=== PATIENT | male | born 1940 | race Caucasian/White ===

== ENCOUNTER 2021-08-22 08:53 | Emergency (ER) | payer OTHER ==
--- OUTSIDE RECORDS SUMMARY | 2021-08-22 08:56 | XMS REPORT | Continuity of Care Document ---
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 4-07 it y of ia ia 00:00: [place] 00 [facility] Branch Vitamin D Vitamin D Disease Active Uni vers deficiency deficiency 4-07 it y of 00:00: [place] 00 [facility] Branch Fatigue Fatigue Disease Active Univers associated associated 4-07 it y of with with 00:00: [place] anemia anemia 00 Medical Branch Colonic Colonic Disease Active 2019- Univers thickening thickening 8-21 it y of 00:00: [place] 00 Medical Branch Esophageal Esophageal Disease Active 2020-0 U nivers dyskinesia dyskinesia 8-07 it y of 00:00: [place] 00 Medical [facility] Paroxysmal Paroxysmal Disease Active 2020-0 U nivers atrial atrial 1-14 ity of fibrillati fibrillati [place] 00 [place] Malignant Malignant Disease Active 2018-06 Uni vers neoplasm neoplasm 0-23 ity of of urinary of urinary [place] bladder, bladder, 00 Medica l unspecifie unspecifie Br anch d site d site 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 0-23 ity of hyperplasi hyperplasi [place] a with a with 00 Medical urinary urinary Branch obstructio obstructio n n Encounter Encounter Disease Active 2018-06 Uni vers for for 0-23 [place] of screening screening 00:[place] for for 00 Medical malignant malignant Bran ch neoplasm neoplasm of lung of lung Need for Need for Disease Active 2018-06 Unive rs 23-polyval 23-polyval 0-23 it y of ent ent 00:00: [place] pneumococc pneumococc 00 Me dical al al Branch polysaccha polysaccha ride ride vaccine vaccine Chronic Chronic Disease Active Univers obstructiv obstructiv 8-08 it y of e e 00:00: [place] pulmonary pulmonary 00 Medi roselia disease, disease, Branch unspecifie unspecifie d COPD d COPD type type Asbestosis Asbestosis Disease Active 2017-06 U nivers 0-08 ity of 00:00: [place] 00 Medical Branch 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 [facility] rs spondylosi spondylosi 0-05 it y of s without s without 00:[place] myelopathy myelopathy 00 Id dical Branch Neck pain Neck pain Disease Active Uni vers of over 3 of over 3 8-29 ity of months months 00:00: [place] duration duration 00 Medica l Branch Essential Essential Disease Active Uni vers hypertensi hypertensi 5-23 it y of on on 00:00: [place] 00 Medical Branch Type 2 Type 2 Disease Active Univers diabetes diabetes 2-08 ity of mellitus mellitus 00:00: [place] without without 00 Medical complicati complicati Br anch on, on, without without long-term long-term current current use of use of insulin insulin Gastroesop Gastroesop Disease Active U nivers hageal hageal 2-08 ity of reflux reflux 00:00: [place] disease disease 00 Medical without without Branch esophagiti esophagiti s s Supraventr Supraventr Disease Active 2013-06 U nivers icular icular 1-12 ity of tachycardi tachycardi [place] a, a, 00 Medical paroxysmal paroxysmal Br anch Status Status Disease Active 2013-06 Univers post post 1-12 ity of ablation ablation 00:00: [place] of of 00 Medical accessory accessory Bran ch bypass bypass tract tract Paroxysmal Paroxysmal Disease Active 2013-06 U nivers supraventr supraventr 0-30 it y of icular icular 00:00: [place] tachycardi tachycardi 00 Me dical a a Branch Personal Personal Disease Active Unive rs history of history of 10-01 it y of malignant malignant 00:[place] neoplasm neoplasm 00 Medica l of bladder of bladder Br anch Allergies, Adverse Reactions, Alerts Allergy Allergy Status Severity Reaction(s) Onset Inactive Treating Comm ents Source Name Type Date Date Clinician CORTICOS Drug Active Other-Cmnt Univ ers TEROIDS Class -29 ity of (GLUCOCO 00:00: [place] RTICOIDS 00 Medical ) Branch Corticos Propensi Active Other - See "makes m e Univers teroids ty to comments 10-27 mean" + ity of (Glucoco adverse 00:00: aggressiv [place] rticoids reaction 00 eness Medica l ) s Branch Simvasta Propensi Active Other - See + muscle Univers tin ty to comments 10-01 cramps ity of adverse 00:00: [place] reaction 00 Medical s to Branch drug Sulfa Propensi Active Other - See + Uni vers (Sulfona ty to comments 10-01 disorient ity of mide adverse 00:00: ation "I [place] Antibiot reaction 00 lost 3 Medica l ics) s to days." Branch drug MORPHINE DRUG Active Other-Cmnt Univ ers (BULK) 10-01 ity of 00:00: [place] 00 Medical Branch SIMVASTA DRUG Active Other-Cmnt Univ ers TIN INGREDI 10-01 ity of 00:00: [place] 00 Medical Branch SULFA Drug Active Other-Cmnt Univer s (SULFONA Class - ity of MIDE 00:00: [place] ANTIBIOT 00 Medical ICS) Branch Morphine Propensi Active Other - See " become Univers (Bulk) ty to comments 10-01 mean." + ity of adverse 00:00: aggressiv [place] reaction 00 eness Medical s to Branch drug Social History Social Habit Start Date Stop Date Quantity Comments Source Exposure to Not sure University SARS-CoV-2 (event) [facility] Alcohol intake 2021-08-16 2021-08-16 .14 /d University of 00:00:00 00:00:00 [facility] Tobacco Comment 2014-04-12 2014-04-12 11 months Universit y of 00:00:00 00:00:00 [facility] Cigarettes smoked 2013-06-10 2013-06-10 Univers ity of current (pack per 00:00:00 00:00:00 [place] ) - Reported Branch Cigarette 2013-06-10 2013-06-10 University of pack-years 00:00:00 00:00:00 [facility] Tobacco use and 2013-06-10 2013-06-10 Former user Universi ty of exposure 00:00:00 00:00:00 [facility] History of tobacco 2013-06-01 Smoker Univer sity of use 00:00:00 [facility] Sex Ass[birth year] At [birth year] Universit y of 00:00:00 00:00:00 [facility] Smoking Status Start Date Stop Date Source Former smoker 2013-06-10 00:00:00 2013-06-10 00:00:00 Universi ty of [facility] Medications Ordered Filled Start Stop Current Ordering Indication Dosage Frequency Signature Comments Components Source Medication Medication Date Date Medication? Clinician (SIG) Name Name aspirin 81 Yes 81mg Take 81 mg U nivers mg tablet 3-18 by mouth ity of 09:57: daily. [address] umeclidiniu 2020-06 Yes [id number] 1{puff} Inhale 1 Univers m (INCRUSE 2-23 Puff ity of ELLIPTA) 00:00: daily. [place] 62.5 00 Medical mcg/actuati Branch on DsDv azelastine 2020-06 Yes [id number] 1{spray Use 1 Univers 137 mcg 2-23 } [place] in ity of (0.1 %) 00:00: each [place] nasal spray 00 nostril 2 Med ical (two) Branch times daily. albuterol 2020-06 Yes [id number] 2{puff} Inhale 2 Univers 90 1-18 Puffs ity of mcg/actuati 00:00: every 6 Kiran as on inhaler 00 (six) Medical hours as Branch needed for Wheezing or Shortness of Breath. tamsulosin Yes [id number] .4mg Take 1 Univers 0.4 mg 24 6-02 capsule by ity of hr capsule 00:00: mouth [place] 00 daily. Medical Branch omeprazole Yes [id number] 40mg Take 1 Univers 40 mg 6-02 capsule by ity of capsule 00:00: mouth 00 daily. Medical Branch metoprolol Yes [id number] 50mg Take 1 U nivers tartrate 50 6-02 tablet by ity of mg tablet 00:00: mouth 2 [place] 00 (two) Medical times [place] daily. metformin Yes [id number] 500mg Take 1 Univers ER 500 mg 6-02 tablet by ity o f 24 hr 00:00: mouth 2 [place] tablet 00 (two) Medical times [place] daily with meals. amLODIPine Yes [id number] 2.5mg Take 1 Univers 2.5 mg 6-02 tablet by ity of tablet 00:00: mouth 00 daily. Medical Branch GLIPIZIDE Yes [id number] TAKE 1 U nivers 10 mg 5-11 TABLET BY ity of tablet 00:00: MOUTH 00 TWICE A Medical DAY BEFORE [place] BREAKFAST AND DINNER Nebulizer & 2019-0 Yes [id number] Use as Univers Compressor 3-26 directed ity o f For Neb 00:00: [place] [facility] blood sugar Yes Test 1 to U nivers diagnostic 2-19 2 times ity of strip 00:00: daily [facility] Immunizations Ordered Filled Immunization Date Status Comments [facility] e Immunization Name Name SARS-COV-2 COVID-19 2021-03-07 Completed Unive rsity of PFIZER VACCINE 00:00:00 [place] [facility] SARS-COV-2 COVID-19 2020-07-26 Completed Unive rsity of PFIZER VACCINE 00:00:00 [place] [facility] SARS-COV-2 COVID-19 2020-06-26 Completed Unive rsity of PFIZER VACCINE 00:00:00 [place] [facility] Influenza High Dose 2020-03-08 Completed Unive rsity of Quad 00:00:00 [facility] Pneumococcal 13 2019-03-21 Completed Universit y of Conjugate, PCV13 00:00:00 [facility] (Prevnar 13) [place] Influenza High Dose 2019-02-24 Completed Unive rsity of 00:00:00 [facility] Influenza High Dose 2018-03-08 Completed Unive rsity of 00:00:00 [facility] Influenza High Dose 2016-04-09 Completed Unive rsity of 00:00:00 [facility] Vital Signs Vital Name Observation Time Observation Value Comments Source Systolic blood 2021-08-16 15:13:00 150 mm[Hg] Univer sity of pressure [facility] Diastolic blood 2021-08-16 15:13:00 88 mm[Hg] Unive rsity of pressure [facility] Heart rate 2021-08-16 15:13:00 69 /min Universi ty of [facility] Respiratory rate 2021-08-16 15:09:00 22 /min Univ ersity of [facility] Body height 2021-08-16 15:09:00 188 cm Universi ty [facility] Body weight 2021-08-16 15:09:00 92.307 kg [facility] BMI 2021-08-16 15:09:00 26.13 kg/m2 [facility] Oxygen saturation in 2021-08-16 15:09:00 93 /min [facility] Arterial blood by [facility] Pulse oximetry Branch Procedures This patient has no known procedures. Encounters Start End Encounter Admission Attending Care Care Encounter Source Date/Time Date/Time Type Type Clinicians Facility Department ID 2021-10-18 2021-10-18 Outpatient R MIRANDA MAI [facility] [id number] Univers 13:00:00 13:00:00 MIRANDA MAI [id number] i ty of [facility] 2021-08-16 2021-08-16 Office Sergei MTDARY [id number] Univers 10:00:00 10:30:00 Visit Miranda CARPIO [id number] i ty [facility] [id number] Oscar gold PROFESSIO [phone] Id dical NAL 085 Branch BUILDING Results This patient has no known results.
[2021-08-22 09:29] LABS: Absolute Lymphocytes (CBC) 1.3 K/uL (0.7-4.9); Hematocrit 42.3 % (39.6-49.0); Lymphocytes % 18.9 % (15.3-44.8); MPV 9.4 fL (7.6-11.3); RBC Red Blood Cell Count 4.58 M/uL (4.33-5.43)
[2021-08-22 09:30] LABS: Protime INR 1.2
--- NOTE | 2021-08-22 09:37 | RAD REPORT ---
EXAM DESCRIPTION: CT - Head Brain Wo Cont - 08/22/2021 9:27 am CLINICAL HISTORY: general weakness COMPARISON: No comparisons TECHNIQUE: Axial 5 mm thick images of the head were obtained without IV contrast. All CT scans are performed using dose optimization technique as appropriate and may include automated exposure control or mA/KV adjustment according to patient size. FINDINGS: No intracranial hemorrhage, mass, edema or shift of mid-line structures. No acute infarcti on of the cortical level. No cortical edema or sulcal effacement. Atrophy changes are mild for age wi th ventricles in proportion. No abnormal extra-axial fluid collections. Chronic ischemic changes are minimal. Mastoid air cells and visualized portions of the paranasal sinuses are clear. No acute bony findings. IMPRESSION: Negative non-contrast CT head examination for acute finding.
[2021-08-22 09:44] LABS: Bilirubin Direct 0.1 mg/dL (0-0.2); Bilirubin Total 0.5 mg/dL (0.2-1.0); Potassium 4.4 mmol/L (3.5-5.1); Protein, Total 7.9 g/dL (6.4-8.2); Troponin High Sensitivity 9.4 pg/mL (<58.9)
--- NOTE | 2021-08-22 10:13 | RAD REPORT ---
EXAM DESCRIPTION: RAD - Chest Single View - 08/22/2021 9:52 am CLINICAL HISTORY: general weakness COMPARISON: 02/16/2012 Two view chest TECHNIQUE: AP portable chest image was obtained 08/22/2021 9:52 am . FINDINGS: Fibrotic lung changes are present. Areas of mineralization seen in the lower lung ornelas p art of a progressive fibrotic process since 2011. Acute infiltrate, failure or volume overload are no t suspected. Heart and vasculature are normal. No measurable pleural effusion and no pneumothorax. No acute bony abnormality seen. No acute aortic findings suspected. IMPRESSION: No acute chest findings suspected. Progressive fibrotic changes are present in the lung ornelas.
[2021-08-22 11:00] LABS: SARS-COV-2 RT PCR NEGATIVE (NEGATIVE)
[2021-08-22] MEDS ORDERED: AMLODIPINE 5 MG TAB ONE (11:24)
--- NOTE | 2021-08-22 11:36 | EDPHYS ---
Physician Documentation [facility] Name: Emery Keyes Age: 80 yrs Sex: Male : 1940 Arrival Date: 08/22/2021 Time: 08:56 Bed 2 Private MD: ED Physician Robles Landon HPI: 08/22 09:20 This 80 yrs old Male presents to ER via EMS with complaints of Left Upper Arm Pain . cp 09:20 The patient or guardian complains of pain, that is acute. The complaints affect the cp left axilla. Onset: The symptoms/episode began/occurred last night. Associated signs and symptoms: Pertinent negatives: decreased range of motion, fever, numbness, weakness, injury, chest pain. 09:20 Patient reports he started having pain to left arm axilla last evening that continued cp that night. Patient presents to ED and reports pain resolved but c/o general weakness. Denies any chest and/or abdomen pain. Historical: - Allergies: 09:05 Morphine; ww 09:05 Vcuvvhv-Hqa-Nxc Reductase Inhibitors; ww 09:05 steroids; ww 09:05 Sulfa (Sulfonamide Antibiotics); ww - Home Meds: 09:05 amlodipine 2.5 mg tab 1 tab once daily [Active]; aspirin 81 mg Oral chew 1 tab once ww daily [Active]; azelastine [Active]; glipizide 10 mg Oral tab 1 tab once daily [Active]; incruse ellipta [Active]; metformin 500 mg Oral Tb24 1 tab once daily [Active]; metoprolol tartrate 50 mg Oral tab 1 tab 2 times per day [Active]; omeprazole 40 mg Oral cpDR 1 cap once daily [Active]; tamsulosin 0.4 mg oral cap 1 cap once daily [Active]; - PMHx: 09:05 Bladder CA; Diabetes - NIDDM; Hypertension; Atrial fibrillation; gerd; Chronic ww obstructive lung disease; - PSHx: 09:05 ablation; ww - Immunization history:: Adult Immunizations up to date. - Social history:: Smoking status: Patient/guardian denies using tobacco, the patient reports quitting approximately 6 years ago. ROS: 09:25 Constitutional: Negative for body aches, chills, fever, poor PO intake. cp 09:25 Eyes: Negative for injury, pain, redness, and discharge. cp 09:25 Neck: Negative for pain with movement, pain at rest, stiffness. 09:25 Cardiovascular: Negative for chest pain, edema, palpitations. 09:25 Respiratory: Negative for cough, shortness of breath, wheezing. 09:25 Abdomen/GI: Negative for abdominal pain, nausea, vomiting, and diarrhea. 09:25 Back: Negative for pain at rest, pain with movement, radiated pain. 09:25 MS/extremity: Positive for pain, of the left axilla, Negative for injury or acute deformity, decreased range of motion, paresthesias. 09:25 Neuro: Negative for altered mental status, dizziness, headache, numbness, syncope, weakness. 09:25 All other systems are negative. Exam: 09:02 ECG was reviewed by the Attending Physician. cp 09:30 Constitutional: The patient appears in no acute distress, alert, awake, comfortable, cp non-diaphoretic, non-toxic, well developed, well nourished. 09:30 Head/Face: Normocephalic, atraumatic. cp 09:30 Eyes: Periorbital structures: appear normal, Conjunctiva: normal, no exudate, no injection, Sclera: no appreciated abnormality, Lids and lashes: appear normal, bilaterally. 09:30 ENT: External ear(s): are unremarkable, Nose: is normal, Mouth: Lips: moist, Oral mucosa: moist, Posterior pharynx: Airway: no evidence of obstruction, patent. 09:30 Neck: ROM/movement: is normal, is supple, without pain, no range of motions limitations. 09:30 Chest/axilla: Inspection: normal, Palpation: is normal, no crepitus, no tenderness. 09:30 Cardiovascular: Rate: normal, Rhythm: irregular, Pulses: Pulses are 2+ in right radial artery and left radial artery. Edema: is not appreciated, JVD: is not appreciated. 09:30 Respiratory: the patient does not display signs of respiratory distress, Respirations: normal, no use of accessory muscles, no retractions, labored breathing, is not present, Breath sounds: are clear throughout, no decreased breath sounds, no stridor, no wheezing. 09:30 Abdomen/GI: Inspection: abdomen appears normal, Palpation: abdomen is soft and non-tender, in all quadrants. 09:30 Back: pain, is absent, ROM is normal. 09:30 Neuro: Orientation: to person, place \\T\\ time. Mentation: is normal, Motor: moves all fours, strength is normal, Sensation: is normal. Vital Signs: 09:02 BP 186 / 104; Pulse 66; Resp 17; Temp 97.1; Pulse Ox 98% on R/A; Weight 92.08 kg; ww Height 6 ft. 2 in. (187.96 cm); 09:30 BP 168 / 98; Pulse 78; Resp 20; Pulse Ox 97% on R/A; vg1 10:30 BP 159 / 99; Pulse 82; Resp 16; Pulse Ox 100% on R/A; ww 11:05 BP 160 / 95 LA; Pulse 84; Resp 19; Pulse Ox 98% on R/A; ww 11:05 BP 159 / 100 RA; Pulse 83; Resp 19; Pulse Ox 97% on R/A; ww 12:00 BP 174 / 94; Pulse 78; Resp 16; Pulse Ox 98% on R/A; ww 09:02 Body Mass Index 26.06 (92.08 kg, 187.96 cm) MDM: 09:11 Patient medically screened. cp 10:00 Differential diagnosis: muscle strain, acute SD, angina. cp 11:35 Data reviewed: vital signs, nurses notes, lab test result(s), EKG, radiologic studies, cp CT scan, plain films. 11:35 Test interpretation: by ED physician or midlevel provider: ECG, plain radiologic cp studies. Counseling: I had a detailed discussion with the patient and/or guardian regarding: the historical points, exam findings, and any diagnostic results supporting the discharge/admit diagnosis, the presence of at least one elevated blood pressure reading (>120/80) during this emergency department visit, lab results, radiology results, the need for outpatient follow up, a contracts advisor, to return to the emergency department if symptoms worsen or persist or if there are any questions or concerns that arise at home. 11:35 ED course: VSS. Patient denies any chest pain with episode of left axilla pain. EKG cp shows chronic a-fib. Troponin wnl. Will discharge to home for continued monitoring. 08/22 09:10 Order name: Basic Metabolic Panel; Complete Time: 10:42 cp 08/22 10:42 Interpretation: Normal except: GLUC 145; GFR 78. cp 08/22 09:10 Order name: CBC with Diff; Complete Time: 10:42 cp 08/22 10:44 Interpretation: Reviewed. cp 08/22 09:10 Order name: LFT's; Complete Time: 10:42 cp 08/22 10:42 Interpretation: Normal except: AST 12; GLOB 3.9; A/G 1.0. cp 08/22 09:10 Order name: Magnesium; Complete Time: 10:42 cp 08/22 10:44 Interpretation: Reviewed. cp 08/22 09:10 Order name: NT PRO-BNP; Complete Time: 10:42 cp 08/22 10:42 Interpretation: NT PRO-BNP 542; Reviewed. cp 08/22 09:10 Order name: PT-INR; Complete Time: 10:42 cp 08/22 09:10 Order name: Troponin HS; Complete Time: 10:42 cp 08/22 10:43 Interpretation: Troponin HS 9.40; Reviewed. cp 08/22 09:10 Order name: XRAY Chest (1 view); Complete Time: 10:42 cp 08/22 10:43 Interpretation: Report review. cp 08/22 09:10 Order name: EKG; Complete Time: 09:11 cp 08/22 09:10 Order name: Cardiac monitoring; Complete Time: 09:15 cp 08/22 09:10 Order name: EKG - Nurse/Tech; Complete Time: 09:15 cp 08/22 09:10 Order name: CT Head Brain wo Cont; Complete Time: 10:42 cp 08/22 10:45 Interpretation: Report reviewed. 08/22 09:41 Order name: COVID-19/FLU A+B (Document "Date of Onset" if Symptomatic); Complete Time: ww 11:10 08/22 09:10 Order name: IV Saline Lock; Complete Time: 09:15 cp 08/22 09:10 Order name: Labs collected and sent; Complete Time: 09:15 cp 08/22 09:10 Order name: O2 Per Protocol; Complete Time: 09:15 cp 08/22 09:10 Order name: O2 Sat Monitoring; Complete Time: 09:15 cp 08/22 10:43 Order name: Blood Pressure Recheck: bilateral upper extremity; Complete Time: 11:06 cp EC:02 Rate is 79 beats/min. Rhythm is irregular. QRS interval is prolonged at 142 msec. QT cp interval is normal. T waves are Inverted in lead aVR. Interpreted by me. Reviewed by me. Administered Medications: 11:24 Drug: amLODIPine 5 mg Route: PO; ww Disposition: 12:16 Co-signature as Attending Physician, Robles Landon MD I agree with the assessment and kdr plan of care. Disposition Summary: 08/22/21 11:35 Discharge Ordered Location: Home cp Problem: new cp Symptoms: have improved cp Condition: Stable cp Diagnosis - Pain in left upper arm cp - Hypertensive heart disease without heart failure cp - Unspecified atrial fibrillation cp Followup: cp - With: Private Physician - When: 2 - 3 days - Reason: Recheck today's complaints Discharge Instructions: - Discharge Summary Sheet cp - Atrial Fibrillation cp - Hypertension, Adult cp - Musculoskeletal Pain cp - Aspirin and Your Heart cp Forms: - Medication Reconciliation Form cp - Thank You Letter cp - Antibiotic Education cp - Prescription Opioid Use cp Signatures: Dispatcher [employer] EDMS Robles Landon MD MD [facility] Thor Magana PA PA cp Oneyda Borges RN RN ww Corrections: (The following items were deleted from the chart) 09:43 09:20 This 80 yrs old Male presents to ER via EMS with complaints of Chest Pain > 32 cp y/o. cp 08/23 10:54 08/22 09:20 Patient reports he started having pain to left arm axilla last evening that cp continued that night. Patient presents to ED and reports pain resolved. Denies any chest and/or abdomen pain. cp
--- NOTE | 2021-08-22 11:36 | ER ---
Nurse's Notes [facility] Name: Emery Keyes Age: 80 yrs Sex: Male : 1940 Arrival Date: 08/22/2021 Time: 08:56 Bed 2 Private MD: Diagnosis: Pain in left upper arm;Hypertensive heart disease without heart failure;Unspecified atrial fibrillation Presentation: 08/22 09:02 Chief complaint: Patient states: Woke up at 1:00 with left arm weakness and took 2 baby ww aspirin. This morning around 08:00 took his blood pressure and was elevated. Denies having any chest pain, shortness of breath or headache this morning. Coronavirus screen: Vaccine status: Patient reports receiving the 2nd dose of the covid vaccine. Ebola Screen: Patient denies travel to an Ebola-affected area in the 21 days before illness onset. Initial Sepsis Screen: Does the patient meet any 2 criteria? No. Patient's initial sepsis screen is negative. Does the patient have a suspected source of infection? No. Patient's initial sepsis screen is negative. Risk Assessment: Do you want to hurt yourself or someone else? Patient reports no desire to harm self or others. Onset of symptoms was August 22, 2021. 09:02 Method Of Arrival: EMS: [facility] ww 09:02 Acuity: SOFIA 3 ww Triage Assessment: 09:05 General: Appears in no apparent distress. comfortable, Behavior is calm, cooperative. ww Pain: Complains of pain in left arm. Neuro: Level of Consciousness is awake, alert, obeys commands, Oriented to person, place, time, situation, Moves all extremities. Gait is Speech is normal. Cardiovascular: Capillary refill < 3 seconds Patient's skin is warm and dry. Cardiovascular: Rhythm is atrial fibrillation. Respiratory: Airway is patent Respiratory effort is even, unlabored, Respiratory pattern is regular, symmetrical. GI: No signs and/or symptoms were reported involving the gastrointestinal system. Abdomen is non-distended, Abd is soft and non tender. : No signs and/or symptoms were reported regarding the genitourinary system. Derm: Skin is intact, is thin. Musculoskeletal: No signs and/or symptoms reported regarding the musculoskeletal system. Historical: - Allergies: :05 Morphine; ww 09:05 Njrdgri-Iaz-Fem Reductase Inhibitors; ww 09:05 steroids; ww 09:05 Sulfa (Sulfonamide Antibiotics); ww - Home Meds: 09:05 amlodipine 2.5 mg tab 1 tab once daily [Active]; aspirin 81 mg Oral chew 1 tab once ww daily [Active]; azelastine [Active]; glipizide 10 mg Oral tab 1 tab once daily [Active]; incruse ellipta [Active]; metformin 500 mg Oral Tb24 1 tab once daily [Active]; metoprolol tartrate 50 mg Oral tab 1 tab 2 times per day [Active]; omeprazole 40 mg Oral cpDR 1 cap once daily [Active]; tamsulosin 0.4 mg oral cap 1 cap once daily [Active]; - PMHx: 09:05 Bladder CA; Diabetes - NIDDM; Hypertension; Atrial fibrillation; gerd; Chronic ww obstructive lung disease; - PSHx: 09:05 ablation; ww - Immunization history:: Adult Immunizations up to date. - Social history:: Smoking status: Patient/guardian denies using tobacco, the patient reports quitting approximately 6 years ago. Screenin:11 Abuse screen: Denies threats or abuse. Denies injuries from another. Nutritional ww screening: No deficits noted. Tuberculosis screening: No symptoms or risk factors identified. Fall Risk None identified. Assessment: 09:11 Reassessment: Patient appears in no apparent distress at this time. No changes from ww previously documented assessment. see triage assessment. LALITA Baez at bedside. 10:08 Reassessment: Patient appears in no apparent distress at this time. No changes from [facility] previously documented assessment. Patient and/or family updated on plan of care and expected duration. Pain level reassessed. Patient is alert, oriented x 3, equal unlabored respirations, skin warm/dry/pink. Vital Signs: 09:02 BP 186 / 104; Pulse 66; Resp 17; Temp 97.1; Pulse Ox 98% on R/A; Weight 92.08 kg; ww Height 6 ft. 2 in. (187.96 cm); 09:30 BP 168 / 98; Pulse 78; Resp 20; Pulse Ox 97% on R/A; vg1 10:30 BP 159 / 99; Pulse 82; Resp 16; Pulse Ox 100% on R/A; ww 11:05 BP 160 / 95 LA; Pulse 84; Resp 19; Pulse Ox 98% on R/A; ww 11:05 BP 159 / 100 RA; Pulse 83; Resp 19; Pulse Ox 97% on R/A; ww 12:00 BP 174 / 94; Pulse 78; Resp 16; Pulse Ox 98% on R/A; ww 09:02 Body Mass Index 26.06 (92.08 kg, 187.96 cm) ww ED Course: 08:56 Patient arrived in ED. ww 08:57 Thor Magana PA is PHCP. cp 08:57 Robles Landon MD is Attending Physician. cp 08:59 Tania Franco, RN is Primary Nurse. vg1 09:05 Triage completed. ww 09:05 Arm band placed on left wrist. ww 09:11 Patient has correct armband on for positive identification. Bed in low position. Call ww light in reach. Side rails up X 1. groundwater monitoring technician on. Pulse ox on. NIBP on. 09:11 EKG done. Inserted saline lock: 20 gauge in right antecubital area, using aseptic ww technique. Blood collected. Patient maintains SpO2 saturation greater than 95% on room air. 09:27 CT Head Brain wo Cont In Process Unspecified. EDMS 09:54 XRAY Chest (1 view) In Process Unspecified. EDMS 09:54 X-ray completed. Portable x-ray completed in exam room. Patient tolerated procedure mh1 well. 12:00 No provider procedures requiring assistance completed. IV discontinued, bleeding ww controlled, No redness/swelling at site. Pressure dressing applied. Administered Medications: 11:24 Drug: amLODIPine 5 mg Route: PO; ww Outcome: 11:35 Discharge ordered by MD. cp 12:00 Discharged to home ambulatory, with family. ww 12:00 Condition: stable 12:00 Discharge instructions given to patient, family, Instructed on discharge instructions, follow up and referral plans. medication usage, safety practices, Demonstrated understanding of instructions, follow-up care, medications. 12:01 Patient left the ED. ww Signatures: Dispatcher [employer] EDIL Dmitry Betina 1 Thor Magana PA PA cp Garcia, Victoria, RN RN 1 Oneyda Borges RN RN ww
[2021-08-22 12:22] VITALS: TEMP 97.1
[2021-08-22 12:28] VITALS: BP 174/94; O2SAT 98
== END 2021-08-22 12:01 | disposition home or self-care (01) ==
LOC: ER 08:53
DX: I11.9 Hypertensive heart disease without heart failure (principal); I48.91 Unspecified atrial fibrillation; E11.9 Type 2 diabetes mellitus without complications; I10 Essential (primary) hypertension; J44.9 Chronic obstructive pulmonary disease, unspecified; Z79.82 Long term (current) use of aspirin; Z20.822 Contact with and (suspected) exposure to COVID-19; Z88.2 Allergy status to sulfonamides; Z88.5 Allergy status to narcotic agent; Z88.8 Allergy status to other drugs, medicaments and biological substances
CPT/HCPCS: 93005; 85025; 80048; 36415; 83735; 85610; 80076; 84484; 83880; 0240U; 70450; 71045; 99285